=== PATIENT | female | born 1975 | race Caucasian/White ===

== ENCOUNTER 2017-01-20 10:24 | Emergency (ER) | payer BC ==
[2017-01-20 11:46] LABS: HEMOGLOBIN 12.2 gm/dl (12.3-15.3); RED BLOOD COUNT 4.35 M/UL (4.00-5.10); WHITE BLOOD COUNT 7.8 K/UL (4.5-11.0)
[2017-01-20 12:06] LABS: BUN/CREATININE RATIO 16 (0-10)
== END 2017-01-20 16:30 | disposition home or self-care (01) ==
LOC: ER1 10:24
PROVIDERS: Nurse Practitioner Family
DX: R07.89 Other chest pain (principal); G43.909 Migraine, unspecified, not intractable, without status migrainosus; Z79.899 Other long term (current) drug therapy
CPT/HCPCS: 36415; 70450; 71010; 80053; 81001; 82550; 82553; 83874; 84484; 84703; 85025; 87086; 93005; 96374; 96375; 99285; J1200; J1885; J2765

== ENCOUNTER → 2017-02-24 | Outpatient (CLI) | payer BC | LOC: EMI 02-15 11:00 | DX: R56.9 Unspecified convulsions (principal) | CPT/HCPCS: 70551 ==